=== PATIENT | male | born 1965 | race Hispanic/Latino ===

== ENCOUNTER 2016-11-02 14:30 | Emergency (ER) | payer BC ==
[2016-11-02 14:43] VITALS: RESP 18; TEMP 98.2; O2SAT 96; BMI 28.7
--- NOTE | 2016-11-02 14:59 | ED PDOC ---
Arrival/HPI - General Time Seen by Provider: 11/02/16 14:33 Historian: Patient - History of Present Illness Narrative History of Present Illness (Text): 11/02/16 14:44 51 y/o male, pmh including htn/hyperlipidemia, nkda, c/o rt. thigh abscess x 5 days. Pt. stated that it started off as a small pimple, been getting bigger, went to the urgent care about 2 days ago which refused to I&D for him and gave him antibiotic (doesn't know what is it call). Pt. has no fever or chills, no headache, no dizziness, no palpitation, no numbness or tingling, no other medical or psychological complaints. Past Medical History - Provider Review Nursing Documentation Reviewed: Yes Family/Social History - Physician Review Nursing Documentation Reviewed: Yes Family/Social History: Unknown Family HX Allergies/Home Meds Allergies/Adverse Reactions: Allergies No Known Allergies Allergy (Verified 11/02/16 14:43) Review of Systems - Review of Systems Constitutional: absent: Fatigue, Fevers Eyes: absent: Vision Changes ENT: absent: Hearing Changes Respiratory: absent: SOB, Cough, Sputum Cardiovascular: absent: Chest Pain Gastrointestinal: absent: Abdominal Pain, Nausea, Vomiting Skin: Rash, Abscess, Cellulitis. absent: Pruritis, Skin Lesions, Laceration Neurological: absent: Headache, Dizziness, Focal Weakness Physical Exam Vital Signs Reviewed: Yes Vital Signs Temp Pulse Resp BP Pulse Ox 11/02/16 14:43 98.2 F 101 H 18 148/84 96 Temperature: Afebrile Blood Pressure: Normal Pulse: Tachycardic Respiratory Rate: Normal Appearance: Positive for: Well-Appearing, Non-Toxic, Comfortable Pain Distress: Moderate Mental Status: Positive for: Alert and Oriented X 3 - Systems Exam Head: Present: Atraumatic, Normocephalic Pupils: Present: PERRL Extroacular Muscles: Present: EOMI Conjunctiva: Present: Normal Mouth: Present: Moist Mucous Membranes Neck: Present: Normal Range of Motion Respiratory/Chest: Present: Clear to Auscultation, Good Air Exchange. No: Respiratory Distress, Accessory Muscle Use Cardiovascular: Present: Regular Rate and Rhythm, Normal S1, S2. No: Murmurs Abdomen: Present: Normal Bowel Sounds. No: Tenderness, Distention, Peritoneal Signs Back: Present: Normal Inspection Upper Extremity: Present: Normal Inspection. No: Cyanosis, Edema Lower Extremity: Present: Normal Inspection. No: Edema Neurological: Present: GCS=15, Speech Normal, Motor Func Grossly Intact, Gait Normal, Memory Normal Skin: Present: Warm, Dry, Rashes (Rt. posterior proximal 1/3 thigh noted to have approx. 7cm diameter cellulitis with approx. 2cm diameter firmed induration , no streaking or ulcer, no regional lymphenapathy), Normal Color Psychiatric: Present: Alert, Oriented x 3, Normal Insight, Normal Concentration Medical Decision Making ED Course and Treatment: 11/02/16 15:14 -Bedside sonogram performed be la show there is abscess cavity approx. 1.25cm diameter approx. 1cm inferior to the superficial skin. -sensation intact, motor 5/5, wound irrigate with normal saline, clean with betadine, 1% lidocaine injected locally with approx. 2cc with analgesic obtained , #11 blade made 1.5cm incision with approx. 1-2cc of purulant discharge noted with swelling spontaneously resolved, 1/4" iodofoam packing inserted, xerofoam and gauze dressing, sensation intact, motor 5/5, pt. tolerated the procedure well. -There is no emergent indication of labs or radiology studies indicated at this time. -Discharge home with keflex, bactrim ds, motrin, keep the skin cool and dry for 2 days, dressing and packing needs to be checked and changed after 2 days, return to the ER in 2 days for packing change and wound check, follow up with your own pmd and general surgeon within 2 days, return to the ER for any new or worsening signs or symptoms. - PA / PLATE FILLER / Resident Statement / has reviewed & agrees with the documentation as recorded. Disposition/Present on Arrival - Present on Arrival Any Indicators Present on Arrival: No History of DVT/PE: No History of Uncontrolled Diabetes: No Urinary Catheter: No History of Decub. Ulcer: No - Disposition Have Diagnosis and Disposition been Completed?: Yes Diagnosis: Cellulitis, Abscess Disposition: HOME/ ROUTINE Disposition Time: 15:17 Patient Plan: Discharge Condition: GOOD Discharge Instructions (ExitCare): Cellulitis (ED) Additional Instructions: Discharge home with keflex, bactrim ds, motrin, keep the skin cool and dry for 2 days, dressing and packing needs to be checked and changed after 2 days, return to the ER in 2 days for packing change and wound check, follow up with your own pmd and general surgeon within 2 days, return to the ER for any new or worsening signs or symptoms. Prescriptions: Cephalexin [Keflex] 500 mg PO QID #40 cap Ibuprofen [Motrin] 600 mg PO QID PRN #30 tab PRN Reason: Other Sulfamethoxazole/Trimethoprim [Bactrim Ds Tablet] 1 each PO BID #20 tablet Referrals: Chip Pratt MD [Staff Provider] - Follow up with primary [facility] [place] [Outside] - Follow up with primary Forms: WORK NOTE
[2016-11-02] MEDS ORDERED: Tmp-Smz 800 mg-160 mg DS Tab PO STA (15:09)
[2016-11-02 15:41] VITALS: BP 145/79; PULSE 94
== END 2016-11-02 15:50 | disposition home or self-care (01) ==
LOC: ED 14:30
DX: L02.415 Cutaneous abscess of right lower limb (principal); L03.115 Cellulitis of right lower limb

== ENCOUNTER 2016-11-04 13:31 | Emergency (ER) | payer BC ==
[2016-11-04 13:32] VITALS: BMI 28.7
[2016-11-04 13:59] VITALS: BP 124/86; PULSE 77; RESP 20; TEMP 98.2; O2SAT 99
--- NOTE | 2016-11-04 14:31 | ED PDOC ---
Arrival/HPI - General Chief Complaint: Wound Check Time Seen by Provider: 11/04/16 14:00 Historian: Patient - History of Present Illness Narrative History of Present Illness (Text): 11/04/16 14:00 This 51 yo male presents to this ED for packing removal x 2 days. Patient stated he was seen in this ED x 2 days ago, and I&D was performed. Patient was recommended to return in 2 days. Patient admits wound is healing well. Denies new complains. Context: Home Past Medical History - Provider Review Nursing Documentation Reviewed: Yes - Infectious Disease Hx of Infectious Diseases: None - Cardiac Hx Cardiac Disorders: Yes Hx Hypertension: Yes - Pulmonary Hx Respiratory Disorders: No - Neurological Hx Neurological Disorder: No - HEENT Hx HEENT Disorder: No - Renal Hx Renal Disorder: No - Endocrine/Metabolic Hx Endocrine Disorders: No - Hematological/Oncological Hx Blood Disorders: No - Integumentary Hx Dermatological Disorder: No - Musculoskeletal/Rheumatological Hx Musculoskeletal Disorders: No - Gastrointestinal Hx Gastrointestinal Disorders: No - Genitourinary/Gynecological Hx Genitourinary Disorders: No - Psychiatric Hx Psychophysiologic Disorder: No Hx Substance Use: No - Anesthesia Hx Anesthesia: No Hx Anesthesia Reactions: No Hx Malignant Hyperthermia: No Family/Social History - Physician Review Nursing Documentation Reviewed: Yes Family/Social History: No Known Family HX Smoking Status: Never Smoked Hx Alcohol Use: Yes Hx Substance Use: No Allergies/Home Meds Allergies/Adverse Reactions: Allergies No Known Allergies Allergy (Verified 11/04/16 13:59) Review of Systems - Review of Systems Constitutional: Normal. absent: Fatigue, Weight Change, Fevers Eyes: Normal ENT: Normal Respiratory: Normal Cardiovascular: Normal Gastrointestinal: Normal Genitourinary Male: Normal Musculoskeletal: Normal Skin: Other (Wound check) Neurological: Normal Endocrine: Normal Hemo/Lymphatic: Normal Psychiatric: Normal Physical Exam Vital Signs Temp Pulse Resp BP Pulse Ox 11/04/16 13:56 98.2 F 77 20 124/86 99 11/04/16 13:32 98 F 75 19 125/86 100 Temperature: Afebrile Blood Pressure: Normal Pulse: Regular Respiratory Rate: Normal Appearance: Positive for: Well-Appearing, Non-Toxic, Comfortable Pain Distress: None Mental Status: Positive for: Alert and Oriented X 3 - Systems Exam Head: Present: Atraumatic, Normocephalic Pupils: Present: PERRL Extroacular Muscles: Present: EOMI Conjunctiva: Present: Normal Mouth: Present: Moist Mucous Membranes Neck: Present: Normal Range of Motion Upper Extremity: Present: Normal Inspection, Normal ROM, NORMAL PULSES, Neurovascularly Intact, Capillary Refill < 2s Lower Extremity: Present: NORMAL PULSES, Normal ROM, Neurovascularly Intact, Capillary Refill < 2 s, Other ((+) helaing wound right posterior thigh. No discharge, or tenderness. Packing in place). No: Edema, CALF TENDERNESS, Nery 's Sign, Tenderness Neurological: Present: GCS=15, CN II-XII Intact, Speech Normal, Motor Func Grossly Intact, Normal Sensory Function, Normal Cerebellar Funct, Gait Normal, Memory Normal Skin: Present: Warm, Dry, Normal Color. No: Rashes Psychiatric: Present: Alert, Oriented x 3 Medical Decision Making ED Course and Treatment: 11/04/16 14:32 Re-evaluation. Patient feels better. Discussed results and plan with patient who expresses understanding. All questions answered and there is agreement with the plan to discharge home with instructions. Patient stable for discharge. Return if symptoms persist or worsen. Re-evaluation Time: 14:32 Reassessment Condition: Re-examined, Improved - Procedure PROCEDURE NOTE (Text): 11/04/16 14:32 Packing removal and wound recheck Under sterile technique, packing was remove without complication. No discharge or erythema noted. Wound dressing applied. Disposition/Present on Arrival - Present on Arrival Any Indicators Present on Arrival: No History of DVT/PE: No History of Uncontrolled Diabetes: No Urinary Catheter: No History of Decub. Ulcer: No History Surgical Site Infection Following: None - Disposition Have Diagnosis and Disposition been Completed?: Yes Diagnosis: Encounter for abscess packing removal, Encounter for wound re-check Disposition: HOME/ ROUTINE Disposition Time: 14:33 Patient Plan: Discharge Condition: GOOD Discharge Instructions (ExitCare): Abscess Incision and Drainage (ED) Additional Instructions: Call private doctor for follow up visit in 1-2 days. Clean wound daily with soap and water. Cover wound with gauze. return to emergency if symptoms worsen. Referrals: PCP,NO [Primary Care Provider] - Follow up with primary Kelli Broderick MD [Staff Provider] - Follow up with primary
== END 2016-11-04 14:46 | disposition home or self-care (01) ==
LOC: ED 13:31
DX: Z48.00 Encounter for change or removal of nonsurgical wound dressing (principal); Z51.89 Encounter for other specified aftercare

== ENCOUNTER 2016-11-09 10:57 | Emergency (ER) | payer BC ==
[2016-11-09 11:53] VITALS: TEMP 98.4; BMI 28.5
--- NOTE | 2016-11-09 12:52 | ED PDOC ---
Arrival/HPI - General Chief Complaint: Upper Extremity Problem/Injury Time Seen by Provider: 11/09/16 12:20 Historian: Patient - History of Present Illness Narrative History of Present Illness (Text): 11/09/16 12:55 A 51 year old male, whose past medical history includes hypertension, herniated disc and kidney stones, presents to the emergency department complaining of swelling on left side of neck since yesterday. Patient's physical therapist advised to follow up with emergency department if doesn't go away. Patient reports lifting light weights during physical therapy, but unsure if relates to this. Patient denies any falls, fevers or any other complaints at this time. Time/Duration: Other (yesterday) Symptom Onset: Sudden Symptom Course: Unchanged Activities at Onset: Light Associated Symptoms (Text): none Past Medical History - Provider Review Nursing Documentation Reviewed: Yes - Infectious Disease Hx of Infectious Diseases: None - Cardiac Hx Cardiac Disorders: Yes Hx Hypertension: Yes - Pulmonary Hx Respiratory Disorders: No - Neurological Hx Neurological Disorder: No - HEENT Hx HEENT Disorder: No - Renal Hx Renal Disorder: No - Endocrine/Metabolic Hx Endocrine Disorders: No - Hematological/Oncological Hx Blood Disorders: No - Integumentary Hx Dermatological Disorder: No - Musculoskeletal/Rheumatological Hx Musculoskeletal Disorders: Yes Other/Comment: chronic neck pain - Gastrointestinal Hx Gastrointestinal Disorders: No - Genitourinary/Gynecological Hx Genitourinary Disorders: No - Psychiatric Hx Psychophysiologic Disorder: No Hx Substance Use: No - Anesthesia Hx Anesthesia: No Hx Anesthesia Reactions: No Hx Malignant Hyperthermia: No Family/Social History - Physician Review Nursing Documentation Reviewed: Yes Family/Social History: No Known Family HX Smoking Status: Never Smoked Hx Alcohol Use: Yes Frequency of alcohol use: Few days per week Hx Substance Use: No Allergies/Home Meds Allergies/Adverse Reactions: Allergies No Known Allergies Allergy (Verified 11/09/16 11:53) Home Medications: Home Meds Medication Instructions Recorded Confirmed Atorvastatin [Lipitor] 40 mg PO DAILY 11/09/16 11/09/16 Fenofibrate [Triglide] 160 mg PO DAILY 11/09/16 11/09/16 Metoprolol Succinate 12.5 mg PO BID 11/09/16 11/09/16 Telmisartan/Hydrochlorothiazid 1 tab PO DAILY 11/09/16 11/09/16 [Telmisartan-Hydrochlorothiazide 12.5 mg-80 mg] Review of Systems - Physician Review All systems were reviewed & negative as marked: Yes - Review of Systems Constitutional: absent: Fevers Respiratory: absent: SOB Skin: Other (lump on left side of neck) Neurological: absent: Headache Physical Exam Vital Signs Reviewed: Yes Vital Signs Temp Pulse Resp BP Pulse Ox 11/09/16 15:53 77 17 147/90 97 11/09/16 13:00 76 18 148/90 100 11/09/16 11:47 98.4 F 75 18 152/94 H 96 Temperature: Afebrile Blood Pressure: Hypertensive Pulse: Regular Respiratory Rate: Normal Appearance: Positive for: Well-Appearing, Non-Toxic, Comfortable Pain Distress: None Mental Status: Positive for: Alert and Oriented X 3 - Systems Exam Head: Present: Atraumatic, Normocephalic Pupils: Present: PERRL Extroacular Muscles: Present: EOMI Conjunctiva: Present: Normal Mouth: Present: Moist Mucous Membranes Neck: Present: Normal Range of Motion, Other (soft tissue swelling superior to L clavicle 3 cm; no tenderness or erythema) Respiratory/Chest: Present: Clear to Auscultation, Good Air Exchange. No: Respiratory Distress, Accessory Muscle Use Cardiovascular: Present: Regular Rate and Rhythm, Normal S1, S2. No: Murmurs Abdomen: Present: Normal Bowel Sounds. No: Tenderness, Distention, Peritoneal Signs Back: Present: Normal Inspection Upper Extremity: Present: Normal Inspection. No: Cyanosis, Edema Lower Extremity: Present: Normal Inspection. No: Edema Neurological: Present: GCS=15, CN II-XII Intact, Speech Normal Skin: Present: Warm, Dry, Normal Color. No: Rashes Psychiatric: Present: Alert, Oriented x 3, Normal Insight, Normal Concentration Medical Decision Making ED Course and Treatment: 11/09/16 12:48 Impression: A 51 year old male with swelling to left side of neck. Differential Diagnosis include but are not limited to: Plan: -- US neck/head soft tissue -- Reassess and disposition Prior Visits: Notes and results from previous visits were reviewed. Patient last reported to the emergency department on 11/04/16 for evaluation of packing removal after I&D performed two days. Package removed no erythema or discharge. Patient was advised to cover wound with gauze. Progress Notes: 11/09/16 15:39 us neg. pt advised to follow up outpt for continued managment On re-evaluation, patient feels better and is in no acute distress. I have discussed the results and plan with the patient, who expresses understanding. Patient in agreement with plan to be discharged home. Patient is stable for discharge. Patient was instructed to follow up with physician or return if symptoms worsen or new concerning symptoms arise. - RAD Interpretation Radiology Orders: 11/09/16 12:32 NECK/HEAD SOFT TISSUE [US] Stat - Scribe Statement The provider has reviewed the documentation as recorded by the Sandraibe Aram Keyes Provider Scribe Attestation: All medical record entries made by the Scribe were at my direction and personally dictated by me. I have reviewed the chart and agree that the record accurately reflects my personal performance of the history, physical exam, medical decision making, and the department course for this patient. I have also personally directed, reviewed, and agree with the discharge instructions and disposition. Disposition/Present on Arrival - Present on Arrival Any Indicators Present on Arrival: No History of DVT/PE: No History of Uncontrolled Diabetes: No Urinary Catheter: No History of Decub. Ulcer: No History Surgical Site Infection Following: None - Disposition Have Diagnosis and Disposition been Completed?: Yes Diagnosis: Shoulder mass Disposition: HOME/ ROUTINE Disposition Time: 15:40 Condition: STABLE Discharge Instructions (ExitCare): Shoulder Pain (ED) Additional Instructions: please follow up in clinic or with your doctor. return to emergency room with worsening symptoms or concerns. Referrals: PCP,NO [Primary Care Provider] - Follow up with primary
--- NOTE | 2016-11-09 15:25 | US ---
PROCEDURE: Limited ultrasound of soft tissues of the neck HISTORY: soft tissue mass COMPARISON: None available. TECHNIQUE: Targeted high-resolution ultrasound of the left neck was performed in the region of the clavicle at the site of clinically palpable lump. FINDINGS: There is no evidence of solid or cystic mass or lymphadenopathy at the site of clinically palpable lump. IMPRESSION: No sonographic abnormality at the site of clinically palpable lump. Clinical follow-up is advised and if clinically indicated, further imaging with CT or MRI may be performed.
[2016-11-09 15:55] VITALS: BP 147/90; PULSE 77; RESP 17; O2SAT 97
== END 2016-11-09 15:55 | disposition home or self-care (01) ==
LOC: ED 10:57
DX: R22.9 Localized swelling, mass and lump, unspecified (principal); I10 Essential (primary) hypertension